=== PATIENT | male | born 1960 | race African-American/Black ===

== ENCOUNTER 2017-05-23 20:07 | Inpatient (IN) | payer OTHER ==
[~2017-05-23] VITALS: Ht 165.1 cm; Wt 58.1 kg
[~2017-05-23 20:07] MED LIST: ASPI-1159 PO; IBUP-2028 PO; INSU3INS6 SUBCUT; OXYC15TA82 PO
[2017-05-23 20:17] VITALS: BP 125/68
[2017-05-23] MEDS ORDERED: SODIUM CHLORIDE 0.9% 1,000 ML IV ONE (20:28)
[2017-05-23] MEDS ORDERED: MORPHINE SULFATE 4 MG/ML CPJ (NOT FOR IM USE) IV ONE ×2 (20:30→23:00)
[2017-05-23 21:06] LABS: BASOPHILS % 0.4 % (0.0-2.0); CHLORIDE 95 mEq/L (98-107); EOSINOPHILS % 1.3 % (0.0-5.0); HEMATOCRIT. 31.2 % (42.0-52.0); HEMOGLOBIN. 10.7 g/dL (14.0-18.0); LYMPHOCYTES % 36.1 % (20.0-50.0); MEAN CORPUSCULAR HEMOGLOBIN 31.6 pg (28.0-32.0); MEAN PLATELET VOLUME 9.1 fl (7.4-10.4); MONOCYTES % 7.7 % (2.0-8.0); NEUTROPHILS % 54.5 % (40.0-76.0); PLATELET 119 x1000/uL (130-400); RED BLOOD CELL COUNT 3.39 mill/uL (4.7-6.1)
[2017-05-23 21:17] LABS: CARBON DIOXIDE 24 mEq/L (21-32); TROPONIN I < 0.02 ng/mL (0.00-0.04)
[2017-05-23] MEDS ORDERED: INSULIN REGULAR (HUMULIN R) 300UNITS/3ML IV ONE (21:30)
[2017-05-24] VITALS: BP 125/68
[2017-05-24] MEDS ORDERED: ONDANSETRON HCL 4MG/2ML VIAL IV PRN
[2017-05-24] MEDS ORDERED: ACETAMINOPHEN 325MG TABLET PO PRN
[2017-05-24] MEDS ORDERED: DOCUSATE SODIUM 100MG CAPSULE PO PRN
[2017-05-24] MEDS ORDERED: MAGNESIUM/ALUMINUM HYDROXIDE/SIMETHICONE 30ML UDC PO PRN
[2017-05-24] MEDS ORDERED: CLONIDINE 0.1MG TABLET PO PRN
[2017-05-24] MEDS ORDERED: IPRATROPIUM/ALBUTEROL 0.5-3(2.5)MG/3ML NEB INH PRN
[2017-05-24 01:18] LABS: CARBON DIOXIDE 22 mEq/L (21-32); CHLORIDE 99 mEq/L (98-107)
[2017-05-24 04:00] VITALS: BP 125/72
[2017-05-24] MEDS ORDERED: DEXTROSE 50% WATER 50ML SYRINGE IV PRN (04:00)
[2017-05-24] MEDS: SODIUM CHLORIDE 0.9% 1,000 ML IV SCH (04:06)
[2017-05-24] MEDS: INSULIN DETEMIR UD 100 UNITS/ML SYR SUBCUT SCH ×3 (04:13→21:40)
[2017-05-24] MEDS: HYDROCODONE/ACETAMINOPHEN 5/325MG TABLET PO PRN ×3 (04:21→17:38)
[2017-05-24] MEDS: BLOOD SUGAR DIAGNOSTIC STRIP TEST SCH ×4 (06:56→21:00)
[2017-05-24] MEDS: INSULIN LISPRO 100 UNITS/ML SUBCUT SCH ×4 (06:57→21:40)
[2017-05-24 07:22] LABS: BASOPHILS % 0.3 % (0.0-2.0); EOSINOPHILS % 1.8 % (0.0-5.0); HEMATOCRIT. 28.6 % (42.0-52.0); HEMOGLOBIN. 9.9 g/dL (14.0-18.0); LYMPHOCYTES % 47.7 % (20.0-50.0); MEAN CORPUSCULAR HEMOGLOBIN 31.5 pg (28.0-32.0); MEAN CORPUSCULAR VOLUME 91.4 fL (80.0-94.0); MEAN PLATELET VOLUME 9.3 fl (7.4-10.4); MONOCYTES % 9.1 % (2.0-8.0); NEUTROPHILS % 41.1 % (40.0-76.0); PLATELET 113 x1000/uL (130-400); RED BLOOD CELL COUNT 3.13 mill/uL (4.7-6.1); RED CELL DISTRIBUTION WIDTH 13.4 % (11.6-14.6)
[2017-05-24 08:00] VITALS: BP 123/67
[2017-05-24 08:38] LABS: CREATINE KINASE 78 IU/L (39-308); CREATINE KINASE MB FRACTION 2.1 ng/mL (0.5-3.6); HDL CHOLESTEROL 78 mg/dL (40-59); LDL CHOLESTEROL 84 mg/dL (5-100); TROPONIN I < 0.02 ng/mL (0.00-0.04)
[2017-05-24] MEDS: MULTIVITAMINS,THER W-MINERALS TABLET PO SCH (09:37)
[2017-05-24] MEDS: THIAMINE HCL 100MG TABLET PO SCH (09:38)
[2017-05-24] MEDS: FOLIC ACID 1MG TABLET PO SCH (09:38)
[2017-05-24] MEDS: ASPIRIN 81MG EC TABLET PO SCH (09:38)
[2017-05-24] MEDS: ENOXAPARIN 40MG/0.4ML SYR SUBCUT SCH (09:39)
[2017-05-24 12:00] VITALS: BP 134/74
[2017-05-24] MEDS ORDERED: PNEUMOCOCCAL 23-VAL P-SAC VAC 0.5 ML IM ONE (12:00)
[2017-05-24 15:55] LABS: CREATINE KINASE 63 IU/L (39-308); CREATINE KINASE MB FRACTION 1.9 ng/mL (0.5-3.6); TROPONIN I < 0.02 ng/mL (0.00-0.04)
[2017-05-24 16:00] VITALS: BP 130/78
[2017-05-24 20:00] VITALS: BP 130/67
[2017-05-25] VITALS: BP 119/65
[2017-05-25 04:00] VITALS: BP 135/75
[2017-05-25] MEDS: BLOOD SUGAR DIAGNOSTIC STRIP TEST SCH ×4 (06:03→19:56)
[2017-05-25] MEDS: SODIUM CHLORIDE 0.9% 1,000 ML IV SCH ×3 (06:25→19:59)
[2017-05-25] MEDS: INSULIN LISPRO 100 UNITS/ML SUBCUT SCH ×4 (06:26→21:06)
[2017-05-25] MEDS: HYDROCODONE/ACETAMINOPHEN 5/325MG TABLET PO PRN ×4 (06:34→23:49)
[2017-05-25 08:00] VITALS: BP 148/78
[2017-05-25] MEDS: MULTIVITAMINS,THER W-MINERALS TABLET PO SCH (08:40)
[2017-05-25] MEDS: ASPIRIN 81MG EC TABLET PO SCH (08:40)
[2017-05-25] MEDS: THIAMINE HCL 100MG TABLET PO SCH (08:40)
[2017-05-25] MEDS: FOLIC ACID 1MG TABLET PO SCH (08:40)
[2017-05-25] MEDS: ENOXAPARIN 40MG/0.4ML SYR SUBCUT SCH (08:41)
[2017-05-25] MEDS: GABAPENTIN 300MG CAPSULE PO SCH ×3 (11:11→21:04)
[2017-05-25 12:00] VITALS: BP 136/76
[2017-05-25] MEDS: INSULIN DETEMIR UD 100 UNITS/ML SYR SUBCUT SCH ×2 (12:36→23:51)
[2017-05-25 16:00] VITALS: BP 116/75
[2017-05-25 20:00] VITALS: BP 130/67
[2017-05-26] VITALS: BP 101/56
[2017-05-26 04:00] VITALS: BP_SYST 103; BP_SYST 113; BP_DIAS 45; BP_DIAS 74
[2017-05-26] MEDS: BLOOD SUGAR DIAGNOSTIC STRIP TEST SCH ×2 (06:06→11:46)
[2017-05-26] MEDS: GABAPENTIN 300MG CAPSULE PO SCH (06:22)
[2017-05-26] MEDS: INSULIN LISPRO 100 UNITS/ML SUBCUT SCH ×2 (06:23→12:09)
[2017-05-26 08:00] VITALS: BP 115/64
[2017-05-26] MEDS: ASPIRIN 81MG EC TABLET PO SCH (08:11)
[2017-05-26] MEDS: FOLIC ACID 1MG TABLET PO SCH (08:11)
[2017-05-26] MEDS: MULTIVITAMINS,THER W-MINERALS TABLET PO SCH (08:11)
[2017-05-26] MEDS: HYDROCODONE/ACETAMINOPHEN 5/325MG TABLET PO PRN (08:12)
[2017-05-26] MEDS: THIAMINE HCL 100MG TABLET PO SCH (08:12)
[2017-05-26] MEDS: ENOXAPARIN 40MG/0.4ML SYR SUBCUT SCH (08:19)
[2017-05-26] MEDS: INSULIN DETEMIR UD 100 UNITS/ML SYR SUBCUT SCH (09:54)
[2017-05-26 12:00] VITALS: BP 130/56
[2017-05-26 14:20] VITALS: BP 130/58
== END 2017-05-26 15:21 | disposition home or self-care (01) | DRG 198 ==
LOC: EDBEDREQ 21:46 → ER 22:01 → ENRESERV 23:08 → 8WST 23:51
PROVIDERS: ADMIT Internal Medicine; ATTEND Internal Medicine
DX: I25.118 Atherosclerotic heart disease of native coronary artery with other forms of angina pectoris (principal); E87.1 Hypo-osmolality and hyponatremia; I10 Essential (primary) hypertension; G40.909 Epilepsy, unspecified, not intractable, without status epilepticus; E11.9 Type 2 diabetes mellitus without complications; J98.11 Atelectasis; Z86.73 Personal history of transient ischemic attack (TIA), and cerebral infarction without residual deficits; Z87.891 Personal history of nicotine dependence; Z98.61 Coronary angioplasty status
CPT/HCPCS: 36415; 71010; 80048; 80053; 80061; 82550; 82553; 82962; 83690; 83735; 83880; 84443; 84484; 85025; 85610; 90732; 93005; 93306; 93970; 97162; 99285; G0482; J1650; J1815; J2270; J7030

== ENCOUNTER 2017-09-11 23:56 | Inpatient (IN) | payer OTHER ==
[~2017-09-11] VITALS: Ht 160 cm; Wt 54.4 kg
[2017-09-12 03:14] LABS: HEMATOCRIT 34.7 % (42.0-52.0); HEMOGLOBIN 11.7 g/dL (14.0-18.0); MEAN CORPUSCULAR HEMOGLOBIN 31.3 pg (28.0-32.0); MEAN CORPUSCULAR VOLUME 92.9 fL (80.0-94.0); PLATELET 203 x1000/uL (130-400); RED BLOOD CELL COUNT 3.73 mill/uL (4.7-6.1); RED CELL DISTRIBUTION WIDTH 12.5 % (11.6-14.6)
[2017-09-12 03:23] LABS: CHLORIDE 98 mEq/L (98-107)
[2017-09-12 03:29] LABS: CARBON DIOXIDE 22 mEq/L (21-32); ETHANOL BLOOD < 10 mg/dL
[2017-09-12] MEDS ORDERED: PHENYTOIN SODIUM 1,000 MG in SODIUM CHLORIDE 0.9% 100 ML IV ONE (03:45)
[2017-09-12] MEDS ORDERED: SODIUM CHLORIDE 0.9% 1,000 ML IV ONE (03:45)
[2017-09-12] MEDS ORDERED: INSULIN REGULAR (HUMULIN R) UD 100 UNITS/ML SYR IV ONE (03:45)
[2017-09-12] MEDS ORDERED: LORAZEPAM 2MG/ML CPJ IV ONE (06:15)
[2017-09-12 11:21] VITALS: BP 201/85
[2017-09-12 12:00] VITALS: BP 153/77
[2017-09-12] MEDS ORDERED: NPH,100V (12:13)
[2017-09-12] MEDS ORDERED: VALS40TA10 (12:13)
[2017-09-12] MEDS ORDERED: ASPI-1158 (12:13)
[2017-09-12] MEDS ORDERED: SIMV20TA6 (12:13)
[2017-09-12] MEDS ORDERED: [UNRECOGNIZED DRUG - CODE] (12:13)
[2017-09-12] MEDS ORDERED: PHEN100C12 (12:13)
[2017-09-12] MEDS ORDERED: IPRATROPIUM/ALBUTEROL 0.5-3(2.5)MG/3ML NEB INH PRN (16:00)
[2017-09-12] MEDS ORDERED: ONDANSETRON HCL 4MG/2ML VIAL IV PRN (16:00)
[2017-09-12] MEDS ORDERED: ACETAMINOPHEN 650MG SUPP PR PRN (16:00)
[2017-09-12] MEDS: LEVETIRACETAM 500MG/5ML CUP PO SCH ×2 (16:00→21:35)
[2017-09-12] MEDS: ENOXAPARIN 40MG/0.4ML SYR SUBCUT SCH (16:00)
[2017-09-12] MEDS ORDERED: ROCEPHIN IVPB XX SCH (16:15)
[2017-09-12] MEDS ORDERED: MVI, ADULT NO.1 10 ML, FOLIC ACID 1 MG, THIAMINE HCL 100 MG in SODIUM CHLORIDE 0.9% 1,0... IV NR ×4 (18:00)
[2017-09-12] MEDS: CEFTRIAXONE 1 G PREMIX 50 ML IV SCH (19:49)
[2017-09-12 20:00] VITALS: BP 146/78
[2017-09-12] MEDS ORDERED: DEXTROSE 50% WATER 50ML SYRINGE IV PRN (20:30)
[2017-09-12] MEDS ORDERED: LORAZEPAM 2MG/ML CPJ IV PRN (21:00)
[2017-09-12] MEDS: INSULIN LISPRO 100 UNITS/ML SUBCUT SCH (21:32)
[2017-09-12] MEDS: BLOOD SUGAR DIAGNOSTIC STRIP TEST SCH (21:32)
[2017-09-13] VITALS: BP 112/65
[2017-09-13 00:53] LABS: CREATINE KINASE 93 IU/L (39-308); TROPONIN I < 0.02 ng/mL (0.00-0.04)
[2017-09-13 04:00] VITALS: BP 152/90
[2017-09-13] MEDS: BLOOD SUGAR DIAGNOSTIC STRIP TEST SCH ×4 (06:47→21:12)
[2017-09-13] MEDS: INSULIN LISPRO 100 UNITS/ML SUBCUT SCH ×4 (06:47→21:25)
[2017-09-13 07:44] LABS: BASOPHILS % 0.8 % (0.0-2.0); EOSINOPHILS % 0.5 % (0.0-5.0); HEMATOCRIT. 33.6 % (42.0-52.0); HEMOGLOBIN. 11.4 g/dL (14.0-18.0); MEAN CORPUSCULAR HEMOGLOBIN 31.5 pg (28.0-32.0); MEAN CORPUSCULAR VOLUME 93.1 fL (80.0-94.0); MEAN PLATELET VOLUME 8.8 fl (7.4-10.4); MONOCYTES % 9.4 % (2.0-8.0); NEUTROPHILS % 67.3 % (40.0-76.0); PLATELET 205 x1000/uL (130-400); RED BLOOD CELL COUNT 3.61 mill/uL (4.7-6.1)
[2017-09-13] MEDS ORDERED: LORAZEPAM 2MG/ML CPJ IV PRN (09:00)
[2017-09-13 09:31] LABS: CARBON DIOXIDE 18 mEq/L (21-32); CHLORIDE 112 mEq/L (98-107)
[2017-09-13 09:38] LABS: CREATINE KINASE 65 IU/L (39-308); HDL CHOLESTEROL 78 mg/dL (40-59); LDL CHOLESTEROL 97 mg/dL (5-100); TROPONIN I < 0.02 ng/mL (0.00-0.04)
[2017-09-13] MEDS: LEVETIRACETAM 500MG PREMIX 100 ML IV SCH ×2 (10:11→21:02)
[2017-09-13 12:00] VITALS: BP 154/83
[2017-09-13 16:00] VITALS: BP 130/62
[2017-09-13] MEDS: ENOXAPARIN 40MG/0.4ML SYR SUBCUT SCH (16:00)
[2017-09-13] MEDS: CEFTRIAXONE 1 G PREMIX 50 ML IV SCH (17:37)
[2017-09-13 20:00] VITALS: BP 132/52
[2017-09-14] VITALS: BP 115/65
[2017-09-14 04:00] VITALS: BP 122/68
[2017-09-14] MEDS: BLOOD SUGAR DIAGNOSTIC STRIP TEST SCH ×4 (06:46→20:33)
[2017-09-14] MEDS: INSULIN LISPRO 100 UNITS/ML SUBCUT SCH ×4 (06:46→21:44)
[2017-09-14 08:00] VITALS: BP 123/72
[2017-09-14 08:21] LABS: CLARITY URINE TURBID (CLEAR); COLOR URINE ORANGE (YELLOW); KETONES URINE 2+ (NEGATIVE); LEUKOCYTE ESTERASE URINE 2+ (NEGATIVE); NITRITE URINE NEGATIVE (NEGATIVE); OCCULT BLOOD URINE 3+ (NEGATIVE); PROTEIN URINE 2+ (NEGATIVE); UROBILINOGEN URINE 0.2 E.U./dL (0.2-1.0)
[2017-09-14] MEDS: LEVETIRACETAM 500MG PREMIX 100 ML IV SCH ×2 (09:22→20:33)
[2017-09-14 12:00] VITALS: BP 119/70
[2017-09-14] MEDS ORDERED: KEPP500 PO (13:23)
[2017-09-14] MEDS ORDERED: LEVO500T2 PO (13:42)
[2017-09-14 16:44] VITALS: BP 121/69
[2017-09-14] MEDS: ENOXAPARIN 40MG/0.4ML SYR SUBCUT SCH (16:54)
[2017-09-14] MEDS: CEFTRIAXONE 1 G PREMIX 50 ML IV SCH (16:55)
[2017-09-14] MEDS: MORPHINE SULFATE 2 MG/ML CPJ (NOT FOR IM USE) IV PRN ×2 (18:59→23:11)
[2017-09-14 20:00] VITALS: BP 127/66
[2017-09-14 20:55] LABS: *AMPHETAMINES SCREEN URINE NEGATIVE (NEGATIVE); *BARBITURATES SCREEN URINE PRESUMTIVE POSITIVE (NEGATIVE); *BENZODIAZEPINES SCREEN URINE NEGATIVE (NEGATIVE); *COCAINE SCREEN URINE PRESUMTIVE POSITIVE (NEGATIVE); CANNABINOID URINE SCREEN NEGATIVE (NEGATIVE); METHADONE URINE SCREEN NEGATIVE (NEGATIVE); OPIATES URINE SCREEN NEGATIVE (NEGATIVE); PHENCYCLIDINE URINE SCREEN NEGATIVE (NEGATIVE)
[2017-09-14] MEDS: INSULIN DETEMIR UD 100 UNITS/ML SYR SUBCUT SCH (21:45)
[2017-09-15] VITALS (7 sets, daily range): BP systolic 110–128; BP diastolic 60–76
[2017-09-15] MEDS: MORPHINE SULFATE 2 MG/ML CPJ (NOT FOR IM USE) IV PRN ×4 (02:38→21:24)
[2017-09-15] MEDS: INSULIN LISPRO 100 UNITS/ML SUBCUT SCH ×4 (07:06→21:36)
[2017-09-15] MEDS: BLOOD SUGAR DIAGNOSTIC STRIP TEST SCH ×4 (07:06→21:23)
[2017-09-15] MEDS: LEVETIRACETAM 500MG PREMIX 100 ML IV SCH ×2 (09:08→21:23)
[2017-09-15] MEDS: ENOXAPARIN 40MG/0.4ML SYR SUBCUT SCH (16:03)
[2017-09-15] MEDS: CEFTRIAXONE 1 G PREMIX 50 ML IV SCH (17:47)
[2017-09-15] MEDS: INSULIN DETEMIR UD 100 UNITS/ML SYR SUBCUT SCH (22:32)
[2017-09-16] VITALS: BP 112/63
[2017-09-16] MEDS: MORPHINE SULFATE 2 MG/ML CPJ (NOT FOR IM USE) IV PRN ×4 (02:19→21:24)
[2017-09-16 04:00] VITALS: BP 103/62
[2017-09-16] MEDS: INSULIN LISPRO 100 UNITS/ML SUBCUT SCH ×4 (06:21→21:27)
[2017-09-16] MEDS: BLOOD SUGAR DIAGNOSTIC STRIP TEST SCH ×4 (06:21→21:00)
[2017-09-16 08:00] VITALS: BP 130/72
[2017-09-16] MEDS: LEVETIRACETAM 500MG PREMIX 100 ML IV SCH ×2 (09:42→21:23)
[2017-09-16] MEDS ORDERED: HYDROCODONE/ACETAMINOPHEN 5/325MG TABLET PO PRN (09:45)
[2017-09-16] MEDS ORDERED: PHENYTOIN SODIUM 300 MG in SODIUM CHLORIDE 0.9% 50 ML IV SCH (09:45)
[2017-09-16] MEDS: PHENYTOIN SODIUM EXTENDED 100MG CAPSULE PO SCH ×2 (10:50→21:23)
[2017-09-16 12:00] VITALS: BP 126/68
[2017-09-16] MEDS: GABAPENTIN 300MG CAPSULE PO SCH ×2 (13:47→21:23)
[2017-09-16] MEDS: ENOXAPARIN 40MG/0.4ML SYR SUBCUT SCH (16:08)
[2017-09-16] MEDS: CEFTRIAXONE 1 G PREMIX 50 ML IV SCH (17:34)
[2017-09-16 20:00] VITALS: BP 113/73
[2017-09-16] MEDS: INSULIN DETEMIR UD 100 UNITS/ML SYR SUBCUT SCH (21:26)
[2017-09-17] VITALS: BP 110/75
[2017-09-17] MEDS: MORPHINE SULFATE 2 MG/ML CPJ (NOT FOR IM USE) IV PRN ×6 (02:36→23:38)
[2017-09-17 04:00] VITALS: BP 133/75
[2017-09-17] MEDS: INSULIN LISPRO 100 UNITS/ML SUBCUT SCH ×4 (07:03→21:22)
[2017-09-17] MEDS: BLOOD SUGAR DIAGNOSTIC STRIP TEST SCH ×4 (07:03→21:06)
[2017-09-17] MEDS: GABAPENTIN 300MG CAPSULE PO SCH ×3 (07:04→21:03)
[2017-09-17 08:00] VITALS: BP 146/89
[2017-09-17] MEDS: PHENYTOIN SODIUM EXTENDED 100MG CAPSULE PO SCH ×2 (09:29→21:02)
[2017-09-17] MEDS: LEVETIRACETAM 500MG PREMIX 100 ML IV SCH (09:30)
[2017-09-17 12:00] VITALS: BP 126/78
[2017-09-17 16:00] VITALS: BP 107/69
[2017-09-17] MEDS: ENOXAPARIN 40MG/0.4ML SYR SUBCUT SCH (16:32)
[2017-09-17] MEDS: CEFTRIAXONE 1 G PREMIX 50 ML IV SCH (17:48)
[2017-09-17 20:00] VITALS: BP 113/77
[2017-09-17] MEDS: LEVETIRACETAM 500MG TABLET PO SCH (21:02)
[2017-09-17] MEDS: INSULIN DETEMIR UD 100 UNITS/ML SYR SUBCUT SCH (21:23)
[2017-09-18] VITALS: BP 106/65
[2017-09-18 04:00] VITALS: BP 93/48
[2017-09-18] MEDS: MORPHINE SULFATE 2 MG/ML CPJ (NOT FOR IM USE) IV PRN ×2 (04:28→09:15)
[2017-09-18] MEDS: GABAPENTIN 300MG CAPSULE PO SCH (05:54)
[2017-09-18] MEDS: BLOOD SUGAR DIAGNOSTIC STRIP TEST SCH (05:57)
[2017-09-18] MEDS: INSULIN LISPRO 100 UNITS/ML SUBCUT SCH (06:58)
[2017-09-18 07:50] LABS: HEMATOCRIT 28.6 % (42.0-52.0); HEMOGLOBIN 9.7 g/dL (14.0-18.0); MEAN CORPUSCULAR HEMOGLOBIN 31.2 pg (28.0-32.0); MEAN CORPUSCULAR VOLUME 91.7 fL (80.0-94.0); PLATELET 148 x1000/uL (130-400); RED BLOOD CELL COUNT 3.12 mill/uL (4.7-6.1); RED CELL DISTRIBUTION WIDTH 12.9 % (11.6-14.6)
[2017-09-18 08:00] VITALS: BP 126/71
[2017-09-18] MEDS: PHENYTOIN SODIUM EXTENDED 100MG CAPSULE PO SCH (09:08)
[2017-09-18] MEDS: LEVETIRACETAM 500MG TABLET PO SCH (09:08)
[2017-09-18 09:45] VITALS: BP 126/71
[2017-09-18] MEDS ORDERED: PHENYTOIN SODIUM EXTENDED 100MG CAPSULE PO SCH (21:00)
== END 2017-09-18 10:50 | disposition home or self-care (01) | DRG 53 ==
LOC: ER 23:56 → 5WST 09-12 05:44 → ENRESERV 09-12 07:03
PROVIDERS: ADMIT Internal Medicine; ATTEND Internal Medicine
PROC: 4A00X4Z Measurement of Central Nervous Electrical Activity, External Approach (ICD-10-PCS; principal; 2017-09-15)
DX: G40.409 Other generalized epilepsy and epileptic syndromes, not intractable, without status epilepticus (principal); I10 Essential (primary) hypertension; I25.10 Atherosclerotic heart disease of native coronary artery without angina pectoris; E11.9 Type 2 diabetes mellitus without complications; E78.00 Pure hypercholesterolemia, unspecified; E78.5 Hyperlipidemia, unspecified; F14.10 Cocaine abuse, uncomplicated; N39.0 Urinary tract infection, site not specified; Z86.73 Personal history of transient ischemic attack (TIA), and cerebral infarction without residual deficits; Z91.19 Patient's noncompliance with other medical treatment and regimen; Z95.5 Presence of coronary angioplasty implant and graft; Z79.82 Long term (current) use of aspirin; Z79.4 Long term (current) use of insulin; Z79.899 Other long term (current) drug therapy
CPT/HCPCS: 36415; 70450; 70551; 71010; 80048; 80053; 80061; 80076; 80185; 80305; 81001; 82550; 82962; 83690; 84443; 84484; 85025; 85027; 87040; 96365; 96375; 99285; C1893; G0482; J0696; J1165; J1650; J1815; J1953; J2060; J2270; J3411; J3490; J7030; J7040; J7050; A4315

== ENCOUNTER 2020-02-03 04:37 | Inpatient (IN) | payer MEDICAID, OTHER ==
[~2020-02-03] VITALS: Ht 170.2 cm; Wt 63.0 kg
[~2020-02-03 04:37] MED LIST changes: -ASPI-1159 PO; +ASPI-1497 PO; -IBUP-2028 PO; +KEPP500 PO; +LEVO500T2 PO; +NPH,100V; -OXYC15TA82 PO; +SIMV-43 PO; +VALS40TA11; +[UNRECOGNIZED DRUG - CODE]
[2020-02-03 07:09] LABS: BASOPHILS % 0.5 % (0.0-2.0); EOSINOPHILS % 0.4 % (0.0-5.0); HEMATOCRIT. 36.5 % (42.0-52.0); HEMOGLOBIN. 12.7 g/dL (14.0-18.0); MEAN CORPUSCULAR HEMOGLOBIN 31.2 pg (28.0-32.0); MEAN CORPUSCULAR VOLUME 89.9 fL (80.0-94.0); MEAN PLATELET VOLUME 8.3 fl (7.4-10.4); MONOCYTES % 7.6 % (2.0-8.0); NEUTROPHILS % 69.5 % (40.0-76.0); PLATELET 170 x1000/uL (130-400); RED BLOOD CELL COUNT 4.06 mill/uL (4.7-6.1); RED CELL DISTRIBUTION WIDTH 14.7 % (11.6-14.6)
[2020-02-03 07:16] LABS: CHLORIDE 102 mEq/L (98-107)
[2020-02-03] MEDS ORDERED: ASPIRIN 325MG EC TABLET PO ONE (07:30)
[2020-02-03] MEDS ORDERED: ACETAMINOPHEN 500MG TABLET PO ONE (08:00)
[2020-02-03] MEDS ORDERED: NITROGLYCERIN 0.4MG TABLET SL SL PRN ×2 (08:15→08:45)
[2020-02-03] MEDS ORDERED: ONDANSETRON HCL 4MG/2ML INJ IV PRN (08:45)
[2020-02-03] MEDS ORDERED: DEXTROSE 50% WATER 50ML SYRINGE IV PRN (08:45)
[2020-02-03] MEDS ORDERED: ACETAMINOPHEN 325MG TABLET PO PRN (08:45)
[2020-02-03] MEDS: ASPIRIN 81MG TABLET PO SCH (09:00)
[2020-02-03] MEDS: BLOOD SUGAR DIAGNOSTIC STRIP TEST SCH ×4 (09:28→21:42)
[2020-02-03] MEDS ORDERED: INSULIN GLARGINE UD 100 UNITS/ML SYR SUBCUT SCH ×2 (10:00)
[2020-02-03 11:44] VITALS: BP 172/84
[2020-02-03] MEDS: HYDROCODONE/ACETAMINOPHEN 5/325MG TABLET PO PRN ×3 (11:48→22:17)
[2020-02-03 11:50] VITALS: BP_SYST 188
[2020-02-03] MEDS: LOSARTAN POTASSIUM 100 MG TABLET PO SCH (13:28)
[2020-02-03] MEDS: INSULIN LISPRO 100 UNITS/ML SUBCUT SCH ×4 (13:42→22:18)
[2020-02-03] MEDS: INSULIN GLARGINE UD 100 UNITS/ML SYR SUBCUT SCH ×2 (13:48→23:06)
[2020-02-03 16:00] VITALS: BP 128/66
[2020-02-03 20:00] VITALS: BP 117/56
[2020-02-03] MEDS: AMLODIPINE 5MG TABLET PO SCH (21:42)
[2020-02-04] VITALS: BP 106/50
[2020-02-04 04:44] VITALS: BP 110/62
[2020-02-04] MEDS: INSULIN LISPRO 100 UNITS/ML SUBCUT SCH ×5 (07:20→21:00)
[2020-02-04] MEDS: BLOOD SUGAR DIAGNOSTIC STRIP TEST SCH ×4 (07:39→21:00)
[2020-02-04] MEDS: ASPIRIN 81MG TABLET PO SCH (08:48)
[2020-02-04] MEDS: AMLODIPINE 5MG TABLET PO SCH ×2 (08:48→21:00)
[2020-02-04] MEDS: LOSARTAN POTASSIUM 100 MG TABLET PO SCH (08:49)
[2020-02-04] MEDS: HYDROCODONE/ACETAMINOPHEN 5/325MG TABLET PO PRN ×3 (08:52→20:29)
[2020-02-04] MEDS: INSULIN GLARGINE UD 100 UNITS/ML SYR SUBCUT SCH ×2 (12:17→22:00)
[2020-02-04] MEDS ORDERED: CLOPIDOGREL 75MG TABLET PO NR (12:30)
[2020-02-04] MEDS: ISOSORBIDE MONONITRATE 60MG TABLET SR 24HR PO SCH (14:44)
[2020-02-04 15:43] LABS: CHLORIDE 104 mEq/L (98-107)
[2020-02-04 16:00] VITALS: BP 88/49
[2020-02-04 20:00] VITALS: BP 104/42
[2020-02-04] MEDS ORDERED: ATORVASTATIN CALCIUM 40MG TABLET PO SCH (21:00)
[2020-02-04 23:03] LABS: CLARITY URINE CLEAR (CLEAR); COLOR URINE YELLOW (YELLOW); KETONES URINE TRACE (NEGATIVE); LEUKOCYTE ESTERASE URINE TRACE (NEGATIVE); NITRITE URINE NEGATIVE (NEGATIVE); OCCULT BLOOD URINE NEGATIVE (NEGATIVE); PROTEIN URINE TRACE (NEGATIVE)
[2020-02-04 23:19] LABS: *AMPHETAMINES SCREEN URINE NEGATIVE (NEGATIVE); *BARBITURATES SCREEN URINE NEGATIVE (NEGATIVE); CANNABINOID URINE SCREEN NEGATIVE (NEGATIVE); OPIATES URINE SCREEN PRESUMTIVE POSITIVE (NEGATIVE); PHENCYCLIDINE URINE SCREEN NEGATIVE (NEGATIVE)
[2020-02-04 23:20] LABS: *BENZODIAZEPINES SCREEN URINE NEGATIVE (NEGATIVE); *COCAINE SCREEN URINE PRESUMTIVE POSITIVE (NEGATIVE); METHADONE URINE SCREEN NEGATIVE (NEGATIVE)
[2020-02-05] VITALS: BP 122/65
[2020-02-05 04:00] VITALS: BP 120/67
[2020-02-05] MEDS: BLOOD SUGAR DIAGNOSTIC STRIP TEST SCH ×2 (07:20→11:19)
[2020-02-05] MEDS: INSULIN LISPRO 100 UNITS/ML SUBCUT SCH ×2 (07:50→11:21)
[2020-02-05 08:00] VITALS: BP 112/65
[2020-02-05] MEDS: ASPIRIN 81MG TABLET PO SCH (08:56)
[2020-02-05] MEDS: ISOSORBIDE MONONITRATE 60MG TABLET SR 24HR PO SCH (08:57)
[2020-02-05] MEDS: AMLODIPINE 5MG TABLET PO SCH (08:58)
[2020-02-05] MEDS: LOSARTAN POTASSIUM 100 MG TABLET PO SCH (08:59)
[2020-02-05] MEDS ORDERED: CLOPIDOGREL 75MG TABLET PO SCH (09:00)
[2020-02-05] MEDS: INSULIN GLARGINE UD 100 UNITS/ML SYR SUBCUT SCH (09:09)
[2020-02-05] MEDS: HYDROCODONE/ACETAMINOPHEN 5/325MG TABLET PO PRN (09:10)
[2020-02-05] MEDS ORDERED: POTASSIUM CHLORIDE 20MEQ TABLET SR PO NR (11:30)
[2020-02-05 12:00] VITALS: BP 110/57
[2020-02-05] MEDS ORDERED: LIP40 PO (13:21)
[2020-02-05] MEDS ORDERED: CLOP75TA15 PO (13:21)
[2020-02-05] MEDS ORDERED: AMLO5TAB88 PO (13:21)
[2020-02-05] MEDS ORDERED: LANTUSUD SUBCUT (13:21)
[2020-02-05] MEDS ORDERED: LOSA50TA41 MT (13:21)
[2020-02-05] MEDS ORDERED: ASPI-1160 PO (13:21)
[2020-02-05] MEDS ORDERED: AMLODIPINE 5MG TABLET PO SCH (15:00)
[2020-02-05] MEDS ORDERED: METOPROLOL TARTRATE 25MG TABLET PO SCH (21:00)
== END 2020-02-05 16:00 | disposition home or self-care (01) | DRG 203 ==
LOC: ER 04:37 → 7EST 08:06 → EDBEDREQTM 08:23 → EDBEDREQ 08:23 → ENRESERV 10:08 → 6WST 02-04 04:10
PROVIDERS: ADMIT Internal Medicine; ATTEND Internal Medicine
DX: M94.0 Chondrocostal junction syndrome [Tietze] (principal); E11.40 Type 2 diabetes mellitus with diabetic neuropathy, unspecified; D69.6 Thrombocytopenia, unspecified; E11.51 Type 2 diabetes mellitus with diabetic peripheral angiopathy without gangrene; E11.65 Type 2 diabetes mellitus with hyperglycemia; I25.10 Atherosclerotic heart disease of native coronary artery without angina pectoris; D64.9 Anemia, unspecified; E78.5 Hyperlipidemia, unspecified; R19.7 Diarrhea, unspecified; G40.909 Epilepsy, unspecified, not intractable, without status epilepticus; I10 Essential (primary) hypertension; I16.0 Hypertensive urgency; I25.2 Old myocardial infarction; Z95.5 Presence of coronary angioplasty implant and graft; J98.11 Atelectasis; I49.3 Ventricular premature depolarization; Z86.73 Personal history of transient ischemic attack (TIA), and cerebral infarction without residual deficits; K86.1 Other chronic pancreatitis; N41.9 Inflammatory disease of prostate, unspecified; K76.0 Fatty (change of) liver, not elsewhere classified; F14.90 Cocaine use, unspecified, uncomplicated; Z20.828 Contact with and (suspected) exposure to other viral communicable diseases; Z91.19 Patient's noncompliance with other medical treatment and regimen
CPT/HCPCS: 36415; 71045; 80048; 80053; 80305; 81003; 82962; 83880; 84484; 85025; 93005; 93306; 99285; J1815; U0003

== ENCOUNTER 2020-02-16 14:54 | Inpatient (IN) | payer MEDICAID ==
[~2020-02-16] VITALS: Ht 165.1 cm; Wt 62.6 kg
[~2020-02-16 14:54] MED LIST changes: +AMLO5TAB88 PO; +ASPI-1160 PO; +CLOP75TA15 PO; -INSU3INS6 SUBCUT; +LANTUSUD SUBCUT; -LEVO500T2 PO; +LIP40 PO; +LOSA50TA41 MT; -NPH,100V; -VALS40TA11
[2020-02-16] MEDS ORDERED: ONDANSETRON HCL 4MG/2ML INJ IV STA (15:39)
[2020-02-16] MEDS ORDERED: SODIUM CHLORIDE 0.9% 1,000 ML IV ONE (15:39)
[2020-02-16] MEDS ORDERED: MORPHINE SULFATE 4 MG/ML CPJ (NOT FOR IM USE) IV STA (15:39)
[2020-02-16] MEDS ORDERED: INSULIN REGULAR (HUMULIN R) UD 100 UNITS/ML SYR SUBCUT ONE (15:45)
[2020-02-16] MEDS ORDERED: INSULIN REGULAR (HUMULIN R) 300UNITS/3ML SUBCUT NR (15:52)
[2020-02-16 15:56] LABS: BASOPHILS % 0.3 % (0.0-2.0); EOSINOPHILS % 0.8 % (0.0-5.0); HEMATOCRIT. 30.5 % (42.0-52.0); HEMOGLOBIN. 10.7 g/dL (14.0-18.0); LYMPHOCYTES % 24.1 % (20.0-50.0); MEAN CORPUSCULAR HEMOGLOBIN 32.2 pg (28.0-32.0); MEAN CORPUSCULAR VOLUME 91.6 fL (80.0-94.0); MEAN PLATELET VOLUME 8.1 fl (7.4-10.4); MONOCYTES % 5.8 % (2.0-8.0); PLATELET 164 x1000/uL (130-400); RED BLOOD CELL COUNT 3.34 mill/uL (4.7-6.1); RED CELL DISTRIBUTION WIDTH 16.1 % (11.6-14.6)
[2020-02-16 15:57] LABS: CHLORIDE 96 mEq/L (98-107)
[2020-02-16 15:59] LABS: INR 0.9; PARTIAL THROMBOPLASTIN TIME 24.8 sec (23.4-31.0)
[2020-02-16 16:07] LABS: BETA HYDROXYBUTYRATE 0.9 mMol/L (0.0-0.3)
[2020-02-16 16:58] LABS: CLARITY URINE CLEAR (CLEAR); COLOR URINE YELLOW (YELLOW); KETONES URINE NEGATIVE (NEGATIVE); LEUKOCYTE ESTERASE URINE NEGATIVE (NEGATIVE); NITRITE URINE NEGATIVE (NEGATIVE); OCCULT BLOOD URINE TRACE (NEGATIVE); PROTEIN URINE NEGATIVE (NEGATIVE); SPECIFIC GRAVITY URINE 1.027 (1.005-1.030); UROBILINOGEN URINE 0.2 E.U./dL (0.2-1.0)
[2020-02-16] MEDS ORDERED: CEFTRIAXONE 1 G PREMIX 50 ML IV ONE (18:15)
[2020-02-16] MEDS ORDERED: AZITHROMYCIN 500 MG TABLET PO ONE (18:15)
[2020-02-16] MEDS ORDERED: MORPHINE SULFATE 4 MG/ML CPJ (NOT FOR IM USE) IV ONE (19:45)
[2020-02-16 23:45] VITALS: BP 138/73
[2020-02-17] VITALS: BP 138/73
[2020-02-17] MEDS ORDERED: NITR0.4T49 SL (00:01)
[2020-02-17] MEDS ORDERED: PHEN100C4 PO (00:01)
[2020-02-17] MEDS ORDERED: QUET300T2 PO (00:01)
[2020-02-17] MEDS ORDERED: PHEN30TA42 PO (00:01)
[2020-02-17] MEDS ORDERED: GABA-529 PO (00:01)
[2020-02-17] MEDS ORDERED: HYDR-3280 PO (00:01)
[2020-02-17] MEDS ORDERED: DIPHENHYDRAMINE 50MG CAPSULE PO PRN (00:30)
[2020-02-17] MEDS ORDERED: ONDANSETRON HCL 4MG/2ML INJ IV PRN (00:30)
[2020-02-17] MEDS ORDERED: DEXTROSE 50% WATER 50ML SYRINGE IV PRN (00:30)
[2020-02-17] MEDS ORDERED: NON FORMULARY PATIENT HOME MED JT PRN (00:45)
[2020-02-17] MEDS: MORPHINE SULFATE 2 MG/ML CPJ (NOT FOR IM USE) IV PRN ×2 (01:25→06:41)
[2020-02-17 04:00] VITALS: BP 160/70
[2020-02-17] MEDS: BLOOD SUGAR DIAGNOSTIC STRIP TEST SCH ×4 (06:40→21:21)
[2020-02-17] MEDS: INSULIN LISPRO 100 UNITS/ML SUBCUT SCH ×4 (06:40→21:00)
[2020-02-17] MEDS: METFORMIN HCL 500MG TABLET PO SCH ×2 (06:40→17:31)
[2020-02-17 08:00] VITALS: BP 144/79
[2020-02-17] MEDS: DOCUSATE SODIUM 250MG CAPSULE PO SCH ×2 (09:00→17:31)
[2020-02-17] MEDS ORDERED: LOSARTAN POTASSIUM 50 MG TABLET PO SCH (09:00)
[2020-02-17] MEDS: PHENOBARBITAL 30 MG TABLET PO SCH (09:01)
[2020-02-17] MEDS: GABAPENTIN 100MG CAPSULE PO SCH ×2 (09:02→17:31)
[2020-02-17] MEDS: CLOPIDOGREL 75MG TABLET PO SCH (09:02)
[2020-02-17] MEDS: AMLODIPINE 10MG TABLET PO SCH (09:02)
[2020-02-17] MEDS: ASPIRIN 81MG TABLET PO SCH (09:02)
[2020-02-17] MEDS: LEVETIRACETAM 500MG TABLET PO SCH ×2 (09:02→17:31)
[2020-02-17] MEDS: INSULIN GLARGINE UD 100 UNITS/ML SYR SUBCUT SCH ×2 (09:03→21:27)
[2020-02-17] MEDS ORDERED: SORBITOL 70% SOLN 30ML PO SCH (09:15)
[2020-02-17 09:42] LABS: BASOPHILS % 0.6 % (0.0-2.0); EOSINOPHILS % 0.7 % (0.0-5.0); HEMOGLOBIN. 10.5 g/dL (14.0-18.0); LYMPHOCYTES % 27.8 % (20.0-50.0); MEAN CORPUSCULAR HEMOGLOBIN 32.2 pg (28.0-32.0); MEAN CORPUSCULAR VOLUME 91.4 fL (80.0-94.0); MEAN PLATELET VOLUME 8.2 fl (7.4-10.4); MONOCYTES % 5.9 % (2.0-8.0); PLATELET 154 x1000/uL (130-400); RED BLOOD CELL COUNT 3.28 mill/uL (4.7-6.1); RED CELL DISTRIBUTION WIDTH 16.3 % (11.6-14.6)
[2020-02-17 09:49] LABS: CHLORIDE 108 mEq/L (98-107)
[2020-02-17 09:59] LABS: LDL CHOLESTEROL 52 mg/dL (5-100)
[2020-02-17 10:01] LABS: HDL CHOLESTEROL 68 mg/dL (40-59)
[2020-02-17] MEDS: HYDROCODONE/ACETAMINOPHEN 10/325MG TABLET PO PRN ×3 (10:12→19:59)
[2020-02-17 12:00] VITALS: BP 125/67
[2020-02-17 16:00] VITALS: BP 126/73
[2020-02-17 20:00] VITALS: BP 101/58
[2020-02-17] MEDS: ATORVASTATIN CALCIUM 40MG TABLET PO SCH (21:20)
[2020-02-17] MEDS: QUETIAPINE FUMARATE 50MG TABLET PO SCH (21:21)
[2020-02-17] MEDS: PHENYTOIN SODIUM EXTENDED 100MG CAPSULE PO SCH (21:21)
[2020-02-18] VITALS: BP 94/50
[2020-02-18 04:00] VITALS: BP 92/51
[2020-02-18] MEDS: INSULIN LISPRO 100 UNITS/ML SUBCUT SCH ×4 (06:32→20:34)
[2020-02-18] MEDS: BLOOD SUGAR DIAGNOSTIC STRIP TEST SCH ×4 (06:33→20:34)
[2020-02-18 08:00] VITALS: BP 98/56
[2020-02-18] MEDS: PHENOBARBITAL 30 MG TABLET PO SCH (08:13)
[2020-02-18] MEDS: DOCUSATE SODIUM 250MG CAPSULE PO SCH ×2 (08:13→17:25)
[2020-02-18] MEDS: METFORMIN HCL 500MG TABLET PO SCH ×2 (08:13→17:25)
[2020-02-18] MEDS: ASPIRIN 81MG TABLET PO SCH (08:13)
[2020-02-18] MEDS: CLOPIDOGREL 75MG TABLET PO SCH (08:13)
[2020-02-18] MEDS: LEVETIRACETAM 500MG TABLET PO SCH ×2 (08:13→17:25)
[2020-02-18] MEDS: GABAPENTIN 100MG CAPSULE PO SCH ×2 (08:14→17:25)
[2020-02-18] MEDS: AMLODIPINE 10MG TABLET PO SCH (08:14)
[2020-02-18] MEDS: INSULIN GLARGINE UD 100 UNITS/ML SYR SUBCUT SCH ×2 (09:39→21:31)
[2020-02-18 12:00] VITALS: BP 115/61
[2020-02-18] MEDS ORDERED: IOHEXOL-350 100 ML BOTTLE ONE (14:48)
[2020-02-18 16:00] VITALS: BP 138/74
[2020-02-18] MEDS ORDERED: DEXTROSE 50% WATER 50ML SYRINGE IV NR (18:30)
[2020-02-18] MEDS ORDERED: INSULIN REGULAR (HUMULIN R) UD 100 UNITS/ML SYR IV NR (19:30)
[2020-02-18 20:00] VITALS: BP 130/67
[2020-02-18] MEDS: PHENYTOIN SODIUM EXTENDED 100MG CAPSULE PO SCH (20:33)
[2020-02-18] MEDS: ATORVASTATIN CALCIUM 40MG TABLET PO SCH (20:33)
[2020-02-18] MEDS: QUETIAPINE FUMARATE 50MG TABLET PO SCH (20:34)
[2020-02-19] VITALS: BP 115/50
[2020-02-19] MEDS ORDERED: METF100092 MT (03:09)
[2020-02-19] MEDS: HYDROCODONE/ACETAMINOPHEN 10/325MG TABLET PO PRN ×3 (03:52→14:48)
[2020-02-19 04:00] VITALS: BP 98/52
[2020-02-19] MEDS: BLOOD SUGAR DIAGNOSTIC STRIP TEST SCH ×4 (06:21→21:00)
[2020-02-19] MEDS: METFORMIN HCL 500MG TABLET PO SCH ×2 (06:21→16:57)
[2020-02-19] MEDS: INSULIN LISPRO 100 UNITS/ML SUBCUT SCH ×4 (06:25→21:00)
[2020-02-19 07:10] LABS: NEISSERIA GONORRHOEAE NAA Negative (Negative)
[2020-02-19 08:00] VITALS: BP 107/66
[2020-02-19] MEDS: GABAPENTIN 100MG CAPSULE PO SCH ×3 (09:00→16:57)
[2020-02-19] MEDS: CLOPIDOGREL 75MG TABLET PO SCH (09:26)
[2020-02-19] MEDS: PHENOBARBITAL 30 MG TABLET PO SCH (09:26)
[2020-02-19] MEDS: DOCUSATE SODIUM 250MG CAPSULE PO SCH ×2 (09:26→16:57)
[2020-02-19] MEDS: LEVETIRACETAM 500MG TABLET PO SCH ×2 (09:26→16:57)
[2020-02-19] MEDS: ASPIRIN 81MG TABLET PO SCH (09:26)
[2020-02-19] MEDS: INSULIN GLARGINE UD 100 UNITS/ML SYR SUBCUT SCH ×2 (09:30→22:00)
[2020-02-19 12:00] VITALS: BP 104/62
[2020-02-19 16:00] VITALS: BP 125/68
[2020-02-19 20:00] VITALS: BP 109/60
[2020-02-19] MEDS: PHENYTOIN SODIUM EXTENDED 100MG CAPSULE PO SCH (21:00)
[2020-02-19] MEDS: ATORVASTATIN CALCIUM 40MG TABLET PO SCH (21:00)
[2020-02-19] MEDS: QUETIAPINE FUMARATE 50MG TABLET PO SCH (21:00)
[2020-02-20 00:27] VITALS: BP 136/67
[2020-02-20 04:53] VITALS: BP 149/78
[2020-02-20] MEDS: BLOOD SUGAR DIAGNOSTIC STRIP TEST SCH (06:19)
[2020-02-20] MEDS: INSULIN LISPRO 100 UNITS/ML SUBCUT SCH (06:20)
[2020-02-20] MEDS: METFORMIN HCL 500MG TABLET PO SCH ×2 (07:15→09:34)
[2020-02-20 08:00] VITALS: BP 155/74
[2020-02-20] MEDS: CLOPIDOGREL 75MG TABLET PO SCH ×2 (09:00→09:34)
[2020-02-20] MEDS: LEVETIRACETAM 500MG TABLET PO SCH ×2 (09:00→09:34)
[2020-02-20] MEDS: DOCUSATE SODIUM 250MG CAPSULE PO SCH ×2 (09:00→09:34)
[2020-02-20] MEDS: ASPIRIN 81MG TABLET PO SCH ×2 (09:00→09:34)
[2020-02-20] MEDS: PHENOBARBITAL 30 MG TABLET PO SCH ×2 (09:00→09:34)
[2020-02-20] MEDS: HYDROCODONE/ACETAMINOPHEN 10/325MG TABLET PO PRN (09:35)
[2020-02-20] MEDS: GABAPENTIN 100MG CAPSULE PO SCH (09:35)
[2020-02-20] MEDS: INSULIN GLARGINE UD 100 UNITS/ML SYR SUBCUT SCH (09:46)
[2020-02-20 12:00] VITALS: BP 160/90
== END 2020-02-20 12:15 | disposition home or self-care (01) | DRG 197 ==
LOC: ER 14:59 → EDBEDREQ 18:09 → EDBEDREQTM 18:09 → MICUSO 18:38 → 5WST 23:15
PROVIDERS: ADMIT Internal Medicine; ATTEND Internal Medicine
PROC: 0HDNXZZ Extraction of Left Foot Skin, External Approach (ICD-10-PCS; principal; 2020-02-18)
PROC: 0HDMXZZ Extraction of Right Foot Skin, External Approach (ICD-10-PCS; 2020-02-18)
DX: E11.51 Type 2 diabetes mellitus with diabetic peripheral angiopathy without gangrene (principal); E11.42 Type 2 diabetes mellitus with diabetic polyneuropathy; E11.65 Type 2 diabetes mellitus with hyperglycemia; E87.8 Other disorders of electrolyte and fluid balance, not elsewhere classified; E87.1 Hypo-osmolality and hyponatremia; K86.1 Other chronic pancreatitis; I11.0 Hypertensive heart disease with heart failure; I50.32 Chronic diastolic (congestive) heart failure; F14.90 Cocaine use, unspecified, uncomplicated; G40.909 Epilepsy, unspecified, not intractable, without status epilepticus; I25.10 Atherosclerotic heart disease of native coronary artery without angina pectoris; L84 Corns and callosities; L57.0 Actinic keratosis; R26.89 Other abnormalities of gait and mobility; Z95.5 Presence of coronary angioplasty implant and graft; Z59.0 Homelessness; Z79.82 Long term (current) use of aspirin; Z79.4 Long term (current) use of insulin; Z79.899 Other long term (current) drug therapy; Z71.51 Drug abuse counseling and surveillance of drug abuser
CPT/HCPCS: 36415; 71045; 74176; 75635; 80048; 80053; 80061; 81003; 82010; 82962; 83036; 83880; 84145; 84484; 85025; 87491; 87591; 93005; 93923; 93970; 97162; 99285; J0696; J1815; J2270; J2405; J7030; Q0163; Q9967

== ENCOUNTER 2020-02-28 10:13 | Emergency (ER) | payer MEDICAID ==
[~2020-02-28] VITALS: Ht 172.7 cm; Wt 73.0 kg
[~2020-02-28 10:13] MED LIST changes: +GABA-529 PO; +HYDR-3280 PO; -LANTUSUD SUBCUT; -LOSA50TA41 MT; +NITR0.4T49 SL; +PHEN100C4 PO; +QUET300T2 PO; -SIMV-43 PO
[2020-02-28] MEDS ORDERED: INSULIN GLARGINE UD 100 UNITS/ML SYR SUBCUT ONE (11:45)
[2020-02-28 12:08] VITALS: BP 136/84
== END 2020-02-28 12:50 | disposition home or self-care (01) ==
LOC: ER 10:13
DX: Z76.0 Encounter for issue of repeat prescription (principal); R07.89 Other chest pain; Z91.14 Patient's other noncompliance with medication regimen; E11.9 Type 2 diabetes mellitus without complications; I11.9 Hypertensive heart disease without heart failure; G40.909 Epilepsy, unspecified, not intractable, without status epilepticus; Z86.73 Personal history of transient ischemic attack (TIA), and cerebral infarction without residual deficits; Z86.19 Personal history of other infectious and parasitic diseases; Z98.61 Coronary angioplasty status; Z79.82 Long term (current) use of aspirin
CPT/HCPCS: 82962; 93005; 96372; 99283; J1815

== ENCOUNTER 2020-03-28 11:08 | Emergency (ER) | payer MEDICAID ==
[~2020-03-28] VITALS: Ht 177.8 cm; Wt 68.0 kg
[2020-03-28] MEDS ORDERED: KETOROLAC 30MG/ML VIAL IV STA (12:18)
[2020-03-28] MEDS ORDERED: HYDROCODONE/ACETAMINOPHEN 5/325MG TABLET PO STA (12:18)
[2020-03-28 12:34] LABS: CLARITY URINE CLEAR (CLEAR); COLOR URINE YELLOW (YELLOW); KETONES URINE NEGATIVE (NEGATIVE); LEUKOCYTE ESTERASE URINE NEGATIVE (NEGATIVE); NITRITE URINE NEGATIVE (NEGATIVE); OCCULT BLOOD URINE TRACE (NEGATIVE); PROTEIN URINE 1+ (NEGATIVE); SPECIFIC GRAVITY URINE 1.026 (1.005-1.030); UROBILINOGEN URINE 0.2 E.U./dL (0.2-1.0)
[2020-03-28 12:52] LABS: *AMPHETAMINES SCREEN URINE NEGATIVE (NEGATIVE); *BARBITURATES SCREEN URINE NEGATIVE (NEGATIVE); *BENZODIAZEPINES SCREEN URINE NEGATIVE (NEGATIVE); *COCAINE SCREEN URINE PRESUMTIVE POSITIVE (NEGATIVE); METHADONE URINE SCREEN NEGATIVE (NEGATIVE); OPIATES URINE SCREEN NEGATIVE (NEGATIVE)
[2020-03-28 12:53] LABS: CANNABINOID URINE SCREEN NEGATIVE (NEGATIVE); PHENCYCLIDINE URINE SCREEN NEGATIVE (NEGATIVE)
[2020-03-28 13:45] VITALS: BP 110/66
== END 2020-03-28 14:48 | disposition home or self-care (01) ==
LOC: ER 11:19
DX: L05.91 Pilonidal cyst without abscess (principal); R10.13 Epigastric pain; E11.9 Type 2 diabetes mellitus without complications; I10 Essential (primary) hypertension; Z79.899 Other long term (current) drug therapy
CPT/HCPCS: 80305; 81003; 93005; 96374; 99284; J1885